=== PATIENT | female | born 1935 | race Hispanic/Latino ===

== ENCOUNTER 2019-06-19 22:58 | Emergency (ER) | payer MEDICARE ==
[~2019-06-19] VITALS: Ht 157.5 cm; Wt 60.3 kg
[2019-06-19] MEDS ORDERED: LISINOPRIL2.5 MG PO (23:31)
[2019-06-19] MEDS ORDERED: PRAVASTATIN SOD20 MG PO (23:32)
[2019-06-19] MEDS ORDERED: METFORMIN HCL1000 MG PO (23:32)
[2019-06-19] MEDS ORDERED: SULFAMETHOXAZO1 EACH PO (23:33)
[2019-06-19] MEDS ORDERED: GABAPENTIN300 MG PO (23:34)
[2019-06-20] MEDS ORDERED: ZOFRAN4 MG PO (01:20)
[2019-06-20] MEDS ORDERED: TRANSDERM-SCOP1 EACH TD (01:20)
[2019-06-20] MEDS ORDERED: MECLIZINE HCL25 MG PO (01:20)
== END 2019-06-20 01:43 | disposition home or self-care (01) ==
LOC: ED 22:58
DX: H81.399 Other peripheral vertigo, unspecified ear (principal); E11.9 Type 2 diabetes mellitus without complications; E78.00 Pure hypercholesterolemia, unspecified; Z79.899 Other long term (current) drug therapy
CPT/HCPCS: 70450; 80053; 81001; 85025; 96374; 99284-25; J2405

== ENCOUNTER 2023-07-12 03:22 | Emergency (ER) | payer MEDICARE ==
[~2023-07-12] VITALS: Ht 157.5 cm; Wt 60.0 kg
[~2023-07-12 03:22] MED LIST: GABAPENTIN300 MG PO; LISINOPRIL2.5 MG PO; MECLIZINE HCL25 MG PO; METFORMIN HCL1000 MG PO; PRAVASTATIN SOD20 MG PO; SULFAMETHOXAZO1 EACH PO; TRANSDERM-SCOP1 EACH TD; ZOFRAN4 MG PO
[2023-07-12 04:24] LABS: INFLUENZA B NAA NEGATIVE (NEGATIVE); RESPIRATORY SYNCYTIAL VIR NAA NEGATIVE (NEGATIVE)
[2023-07-12] MEDS ORDERED: ondansetron HCL 4 MG/2 ML VIAL IV ONE (04:30)
[2023-07-12] MEDS ORDERED: MORPHINE SULFATE 4 MG/ML VIAL IV ONE (04:30)
[2023-07-12] MEDS ORDERED: SODIUM CHLORIDE 0.9% 500 ML IV ONE (04:30)
[2023-07-12 04:46] LABS: PH, VENOUS 7.376 (7.31-7.41)
[2023-07-12 05:03] LABS: HEMATOCRIT 35.8 % (35.0-50.0)
[2023-07-12 05:04] LABS: ALBUMIN 3.4 g/dL (3.4-5.0); ALBUMIN/GLOBULIN RATIO 0.94 (1.1-2.4); ANION GAP 14.6 (7-21); BILIRUBIN, TOTAL 0.3 ng/dL (0.2-1.0); CALCIUM 8.6 mg/dL (8.5-10.1); POTASSIUM 4.6 mmol/L (3.5-5.1)
[2023-07-12 05:05] LABS: BASOPHILS 0.5 % (0-2); EOSINOPHILS 3.3 % (0-6); HEMOGLOBIN 11.7 g/dL (12.0-18.0); LYMPHOCYTES 30.9 % (24-44); MCH 29.6 (27-36); MCHC 32.6 g/dl (30-36); MCV 90.7 fl (81-99); MONOCYTES 5.7 % (0-12); NEUTROPHILS 59.6 % (39-80); PLATELET COUNT 278 K/uL (140-440); RBC 3.95 M/ul (4.3-5.7); RDW 14.3 (10.5-15.0)
[2023-07-12] MEDS ORDERED: MAGNESIUM SULFATE 2 GM/50 ML BAG IV ONE (05:30)
[2023-07-12 05:47] LABS: BILIRUBIN, URINE NEGATIVE (negative); BLOOD/HGB, URINE NEGATIVE (Negative); KETONE, URINE NEGATIVE (Negative); LEUK ESTERASE, URINE NEGATIVE (negative); NITRITE, URINE NEGATIVE (negative)
[2023-07-12] MEDS ORDERED: MECLIZINE HCL12.5 MG PO (06:02)
[2023-07-12] MEDS ORDERED: PROTONIX40 MG PO (06:02)
[2023-07-12] MEDS ORDERED: ONDANSETRON ODT4 MG PO (06:02)
[2023-07-12] MEDS ORDERED: CARAFATE1 GM PO (06:02)
[2023-07-12] MEDS ORDERED: TRAZODONE HCL50 MG PO (06:08)
[2023-07-12] MEDS ORDERED: ONDANSETRON 4 MG HOME.PACK SL ONE (06:15)
[2023-07-12 06:37] VITALS: BP 152/69
== END 2023-07-12 06:50 | disposition home or self-care (01) ==
LOC: ED 03:22
PROVIDERS: Family Medicine
DX: K29.70 Gastritis, unspecified, without bleeding (principal); E83.42 Hypomagnesemia; R42 Dizziness and giddiness; E11.9 Type 2 diabetes mellitus without complications; Z79.84 Long term (current) use of oral hypoglycemic drugs; Z11.52 Encounter for screening for COVID-19
CPT/HCPCS: 36415; 74177; 80053; 81003; 82010; 82803; 83735; 85025; 87502; 96374; 96375; 99284-25; A9270; J2270; J2405; J3475; J7040; Q9967; U0002